=== PATIENT | female | born 1995 | race Caucasian/White ===

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

== ENCOUNTER 2017-05-23 17:51 | Emergency (ER) | payer OTHER ==
[2017-05-23 18:11] VITALS: BP 110/60; PULSE 60; TEMP 98.6; BMI 27.0
[2017-05-23] MEDS ORDERED: FLUORESCEIN NA 1 EA STRIP ONE (18:20)
[2017-05-23] MEDS ORDERED: TETRACAINE 0.5% OPHTH SOLN 2 ML BOTTLE ONE (18:20)
--- NOTE | 2017-05-23 18:39 | PDOC ---
History of Present Illness - General Chief Complaint: Foreign Body (FB) Stated Complaint: LEFT EYE IRRITATION Time Seen by Provider: 05/23/17 17:57 History Source: Patient Exam Limitations: No Limitations - History of Present Illness Initial Comments: 05/23/17 18:33 This is an otherwise healthy 21-year-old female presented to the emergency department with a complaint of left eye irritation upon the recommendation of the urgent care. Patient states a possibly 2 weeks ago she began to notice a foreign body sensation/left eye pain. No blurring of her vision. No trauma to the eye. No dust or irritation to the left eye. Patient notes that her left eye is tearing and erythematous area intermittently. As a result of her left eye irritation, she has been using eyedrops with minimal improvement. Patient states that she also felt this was ALLERGIES, she was using ALLERGY drops to move her symptoms, this did not help. PMH: denies PSH: denies ALL: nkda Meds: GENERAL/CONSTITUTIONAL: No: fever, chills, weakness, loss of appetite. HEAD, EYES, EARS, NOSE AND THROAT: Yes: left eye irritation SKIN: No: erythema or lesions GENERAL: The patient is in no acute distress. HEAD: Normal with no signs of trauma. EYES: PERRLA, EOMI, sclera anicteric, conjunctiva clear. Vision corrects to No blurriness Flurostein staining demonstrates no uptake SKIN: Warm, Dry, normal turgor, no rashes or lesions noted. Past History - Past Medical History Allergies/Adverse Reactions: Allergies Allergy/AdvReac Type Severity Reaction Status Date / Time No Known Allergies Allergy Verified 10/22/16 15:15 Home Medications: Ambulatory Orders NK [No Known Home Medication] 05/23/17 - Immunization History Immunization Up to Date: Yes - Psycho/Social/Smoking Cessation Hx Anxiety: No Suicidal Ideation: No Smoking History: Never smoked Hx Alcohol Use: No Drug/Substance Use Hx: No Substance Use Type: None *Physical Exam - Vital Signs Last Vital Signs Temp Pulse Resp BP Pulse Ox 98.6 F 60 15 110/60 97 05/23/17 17:53 05/23/17 17:53 05/23/17 17:53 05/23/17 17:53 05/23/17 17:53 *DC/Admit/Observation/Transfer Diagnosis at time of Disposition: Irritation of eye - Discharge Dispostion Disposition: HOME Condition at time of disposition: Stable Admit: No - Referrals Referrals: Mirna Coronel MD [Staff Physician] - Colton Maynard MD [Staff Physician] - - Patient Instructions Printed Discharge Instructions: DI for Eye Pain, DI for Conjunctivitis Additional Instructions: Leigh Ann Thank you for coming in to the ER today Please follow up with the Opthalmologist for re evaluation tomorrow Please return to the ER if you are unable to make this follow up - Post Discharge Activity Work/School Note: Back to School
== END 2017-05-23 18:54 | disposition home or self-care (01) ==
LOC: FER 17:51
DX: H57.8 Other specified disorders of eye and adnexa (principal)
CPT/HCPCS: 99281-25